=== PATIENT | female | born 2000 | race African-American/Black ===

== ENCOUNTER 2022-08-20 08:49 | Emergency (ER) | payer SELFPAY ==
[~2022-08-20] VITALS: Ht 157.5 cm; Wt 77.0 kg
[2022-08-20 09:51] VITALS: BP 92/53
[2022-08-20] MEDS ORDERED: ONDANSETRON ODT 4 MG TAB PO ONE (10:00)
[2022-08-20] MEDS ORDERED: CYCL-839 PO (11:06)
[2022-08-20] MEDS ORDERED: ONDA-144 PO (11:06)
[2022-08-20] MEDS ORDERED: IBUP600T28 PO (11:06)
[2022-08-20] MEDS ORDERED: IBUPROFEN 600 MG TAB PO ONE (11:15)
== END 2022-08-20 11:06 | disposition home or self-care (01) ==
LOC: ER 08:49
DX: S46.912A Strain of unspecified muscle, fascia and tendon at shoulder and upper arm level, left arm, initial encounter (principal); S39.012A Strain of muscle, fascia and tendon of lower back, initial encounter; S06.0XAA Concussion with loss of consciousness status unknown, initial encounter; N20.0 Calculus of kidney; X58.XXXA Exposure to other specified factors, initial encounter; Y93.89 Activity, other specified; Y92.89 Other specified places as the place of occurrence of the external cause; Y99.8 Other external cause status
CPT/HCPCS: 70450; 72131; 73030; 99284; Q0162